=== PATIENT | male | born 1955 | race American Indian/Alaskan Native ===

== ENCOUNTER 2018-09-22 09:35 | Day surgery (SDC) | payer OTHER ==
[~2018-09-22 09:35] MED LIST: NACL 0.9% 1000 ML 1,000 ML IV SCH
[2018-09-22] MEDS ORDERED: DIPRIVAN 10 MG/ML IV ONE ×2 (12:20→12:43)
--- NOTE | 2018-09-22 13:04 | Anesthesia Consultation ---
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
--- NOTE | 2018-09-22 13:05 | Anesthesia Day of Surgery ---
Anesthesia Day of Surgery - Day of Surgery Patient Examined: Yes Patient H&P Reviewed: Yes Patient is NPO: Yes Beta Blockers: No
--- NOTE | 2018-09-22 13:22 | Discharge Summary ---
Short Stay Discharge Plan Activity: advance as tolerated Weight Bearing Status: Weight Bear as Tolerated Diet: regular Additional Instructions: Post Sedation D/C Instructions When you return home you may resume your regular diet unless otherwise directed. -Go directly home from the hospital and rest quietly. You may resume normal activities tomorrow. - Do NOT drive, return to work, operate any machinery or make any important personal or business decisions today. -Do NOT drink any alcohol or take nerve or sleeping drugs. They add to the effects of the medicine still present in your body. No Aspirin or Aspirin products Follow up with: PRIMARY CARE [Primary Care Provider] - 7 Days
--- NOTE | 2018-09-22 13:22 | Operative Report ---
Operative Report Operative Report: Date of procedure: 09/22/2018 Procedure: Colonoscopy with Submucosal injection, Snare polypectomy, Multiple Hot Biopsy Polypectomies and Ablation of colon polyps . Attending physician: Kimo Lima MD Stacker Straightener: Kimo Lima MD Indication: Patient is a 63-year-old male who presents for screening colonoscopy. Patient has a personal history of colon polyps. This colonoscopy serves to evaluate patient so that treatment may be directed based on the findings. Consent: Informed consent was obtained after advising the patient and family regarding nature of this procedure, its indications, potential benefits as well as possible complications including but not limited to bleeding perforation and adverse reaction to medication, infection as well as other cardiopulmonary complications. An informed written and verbal consent was then obtained after due opportunity was provided for questions and answers. Monitoring: Patient was monitored continuously with pulse oximetry and electrocardiographic recordings as well as blood pressure recordings. Vital signs remained stable throughout this procedure with no untoward events. Preoperative assessment: Patient was assessed immediately prior to this procedure for capacity to tolerate monitored anesthesia care and moderate sedation as well as general anesthesia. Patient's ASA classification is 2, Mallampati class is 2, Hyomental distance is 3. Instrument: StackIQn video colonoscope Medications: Propofol given intravenously in divided doses. For details please refer to anesthesia records. Description of procedure: Patient was placed in the left lateral decubitus position after achieving sedation, a digital rectal examination was performed following which the colonoscope was introduced into the anal verge and advanced to the cecum which was identified by the cecal valve, the appendiceal orifice, as well as by the cecal strap and direct transillumination. The colonoscope was subsequently withdrawn with careful inspection of all mucosal surfaces. Patient tolerated this procedure well and was subsequently taken to the recovery room. The following findings were noted. Findings: Patient has substantial retained stool in the Cecum, ascending colon, transverse colon, descending colon and sigmoid colon. There were isolated stool droplets in the rectum. In the ascending colon, patient had 2 diminutive sessile polyps that were removed by hot biopsy polypectomy and retrieved. In the transverse colon patient had a flat 1 cm polyp. This was elevated with submucosal injection of saline and removed by snare electrocautery. The descending colon was normal. In the sigmoid colon, patient had multiple diminutive polyps. In all 4 polyps were removed by hot biopsy polypectomy. There were scattered diverticula in the sigmoid colon and descending colon. There were multiple diminutive flat polyps in the rectum that were ablated. There were 2 larger flat polyps in the rectum each measuring about 6-8 mm that were removed by hot biopsy polypectomy. On the retroflexed view of the anal verge, patient had prominent large internal hemorrhoids. Impression: Ascending colon polyp status post hot biopsy polypectomy. Transverse colon polyp status post submucosal injection, with snare polypectomy. Multiple sigmoid colon polyps status post hot biopsy polypectomy . Multiple rectal polyps status post ablation. Rectal polyps status post hot biopsy polypectomy Diverticulosis. Poor colonoscopic preparation with retained stool Prominent large Internal hemorrhoids. Plan: Follow pathology report. High-fiber diet. Repeat colonoscopy in 6-12 months due to poor colonoscopic preparation. Patient will benefit from hemorrhoidal band ligation in the near future
[2018-09-22 13:30] VITALS: BP 169/92
[2018-09-22] MEDS ORDERED: WATER FOR IRRIG STERILE ONE (14:26)
== END 2018-09-22 09:36 | disposition home or self-care (01) ==
LOC: GIO 09:35
PROVIDERS: ATTEND Internal Medicine Gastroenterology
DX: Z12.11 Encounter for screening for malignant neoplasm of colon (principal); D12.2 Benign neoplasm of ascending colon; D12.3 Benign neoplasm of transverse colon; K63.5 Polyp of colon; K62.1 Rectal polyp; K57.30 Diverticulosis of large intestine without perforation or abscess without bleeding; K64.8 Other hemorrhoids; I10 Essential (primary) hypertension; E11.9 Type 2 diabetes mellitus without complications; E66.9 Obesity, unspecified; G47.30 Sleep apnea, unspecified; Z79.4 Long term (current) use of insulin; Z87.891 Personal history of nicotine dependence; Z79.84 Long term (current) use of oral hypoglycemic drugs; Z79.899 Other long term (current) drug therapy; Z79.891 Long term (current) use of opiate analgesic; E78.00 Pure hypercholesterolemia, unspecified; Z68.27 Body mass index [BMI] 27.0-27.9, adult
CPT/HCPCS: 45381; 45384; 45385; 45388; 82962; 88305; J2704; J7030